=== PATIENT | female | born 1975 | race Caucasian/White ===

== ENCOUNTER 2016-06-21 02:29 | Emergency (ER) | payer OTHER ==
--- NOTE | ~2016-06-21 | CT2 ---
[facility] A Service of [facility] RADIOLOGY TEXT RESULTS PATIENT: KINJAL CAMACHO LOCATION: SED : 77 UNIT #: [id number] AGE: [address]: Carlyle Elena MD SEX: F ORDER DR: [id number] [place] [id number] E MR#: [id number] Acc #: [id number] NAME: KINJAL CAMACHO : 1975 SEX: F STUDY DATE/TIME: 06/21/2016 UNIT: SED ROOM: STUDY DESCRIPTION: CT Abd and Pelv W Cont Attending Physician: Carlyle Elena M.D. Ordering Physician: Carlyle Elena M.D. Primary Care Physician: Primary Care Physician No MEDICAL IMAGING REPORT This report is preliminary unless electronic signature is present. EXAM Abdomen and pelvis CT 06/21 at 03:40 INDICATIONS Left side abdominal pain with nausea that started yesterday. Pain rates 7 out of 10. TECHNIQUE Axial images were obtained through the abdomen and pelvis following oral and IV contrast administration. Multiplanar reformats were obtained. No comparison. The CT exam was performed with one or more of the following radiation dose reduction techniques: automatic exposure control, adjustment of mA and/or kV according to patient size, and iterative reconstruction. FINDINGS Abdomen: Minimal atelectasis in the lung bases dependently. Gallbladder surgically absent. There is a 4 mm stone in the lower pole of the left kidney. Solid organs otherwise are normal. No adenopathy or free fluid is seen. The GI tract is normal. Pelvis: Urinary bladder is normal. Uterus is surgically absent. The appendix is normal. The remainder of the GI tract is normal as well. IMPRESSION 1. No acute findings in the abdomen or pelvis. 2. A small nonobstructing stone left kidney. No ureteral stones on either side and no hydronephrosis. 3. Normal GI tract including the appendix. 4. Hysterectomy and cholecystectomy. [facility] A Service of [facility] RADIOLOGY TEXT RESULTS PATIENT: KINJAL CAMACHO LOCATION: SED : [birth year] UNIT #: [id number] AGE: [address]: Carlyle Elena MD SEX: F ORDER DR: Dictated by... Dimitrios Chowdhury Jr., M.D. THIS IS AN ELECTRONICALLY VERIFIED REPORT Dimitrios Chowdhury Jr., M.D. at 06/21/2016 9:25 PM SUNIL/stephanie TD: 06/21/2016 09:49 JOB #: [id number] MEDICAL IMAGING REPORT Page 1 of 1
[2016-06-21 02:02] LABS: URINE SOURCE CLEAN CATCH
[2016-06-21 02:04] LABS: URINE APPEARANCE CLEAR; URINE BILIRUBIN NEG (NEG); URINE BLOOD TRACE-INTACT (NEG); URINE COLOR YELLOW; URINE GLUCOSE NEG (NORM); URINE KETONE NEG (NEG); URINE LEUKOCYTE ESTERASE NEG (NEG); URINE NITRATE NEG (NEG); URINE PH 7.5 (5-8); URINE PROTEIN NEG (NEG); URINE SPECIFIC GRAVITY 1.015 (1.003-1.035); URINE UROBILINOGEN 0.2 MG/DL (NORM)
[2016-06-21 02:06] LABS: MICRO INDICATED? YES
[2016-06-21 02:11] LABS: CULTURE INDICATED? NO; URINE BACTERIA NEG (NEG); URINE SQUAMOUS EPITHELIAL CELL FEW /[HPF]; URINE WBC NEG /[HPF] (0-5)
[~2016-06-21 02:29] MED LIST: CERTAGEN PO; EC-NAPROSYN500 MG PO; FERROUS SULFATE PO; FLAGYL PO; FOLIC ACID PO; IBUPROFEN PO; KCL PO; LEXAPRO20 MG PO; MEDROL PO; PERCOCET5/325 PO; PRENATAL MULTIV1 TA1; SUBOXONE 2 MG-1 EACH TOP; VICODIN 5/500 T1 TAB PO
[2016-06-21 02:48] LABS: BASOPHIL# 0.1 X10e3 (0-0.3); BASOPHIL% 0.6 % (0-2.5); EOSINOPHIL# 0.3 X10e3 (0-0.7); EOSINOPHIL% 2.9 % (0.0-7.0); HEMATOCRIT 44.3 % (35.0-45.0); HEMOGLOBIN 15.2 gm/dL (12.0-16.0); LYMPHOCYTE# 2.7 X10e3 (1.0-3.5); LYMPHOCYTE% 27.4 % (17.0-45.0); MEAN CELL VOLUME 99.8 FL (83-96); MEAN CORPUSCULAR HEMOGLOBIN 34.2 PG (28-34); MEAN CORPUSCULAR HGB CONC 34.3 g/dL (30-36); MONOCYTE# 0.4 X10e3 (0-1.0); MONOCYTE% 4.3 % (3.0-12.0); NEUTROPHIL# 6.5 X10e3 (1.5-7.1); NEUTROPHIL% 64.8 % (40-75); PLATELET COUNT 254 X10e3 (140-420); RED BLOOD COUNT 4.44 X10e (3.90-5.30); RED CELL DISTRIBUTION WIDTH 12.1 % (11.0-15.5)
[2016-06-21 02:54] LABS: DIFF IND NO
[2016-06-21 03:00] LABS: ALBUMIN SERUM 4.5 g/dL (3.5-5.0); BILIRUBIN, DIRECT 0.1 mg/dL (0.0-0.2); BILIRUBIN,INDIRECT 0.2 mg/dL (0.0-0.9); BILIRUBIN,TOTAL 0.3 mg/dL (0.2-2.0); CALCIUM SERUM 9.7 mg/dL (8.4-10.2); CREATININE SERUM 0.6 mg/dL (0.6-1.4); GLOM FILT RATE Estimated 114.8 mL/min (>60); POTASSIUM 4.1 mmol/L (3.5-5.1); PROTEIN TOTAL SERUM 8.1 g/dL (6.0-8.3)
== END 2016-06-21 04:20 | disposition home or self-care (01) ==
LOC: SED 02:29
PROVIDERS: Emergency Medicine
DX: R10.30 Lower abdominal pain, unspecified (principal); R11.0 Nausea; F17.200 Nicotine dependence, unspecified, uncomplicated; Z88.5 Allergy status to narcotic agent
CPT/HCPCS: 36415; 74177; 80048; 80076; 81003; 83690; 85025; 96361; 96374; 96375; 99284; J2270; J2405; Q9967

== ENCOUNTER 2016-10-16 16:09 | Emergency (ER) | payer OTHER ==
[~2016-10-16] VITALS: Ht 170.2 cm; Wt 74.8 kg
--- NOTE | ~2016-10-16 | CR169 ---
[facility] A Service of [facility] RADIOLOGY TEXT RESULTS PATIENT: KINJAL CAMACHO LOCATION: SED : [birth year] UNIT #: [id number] AGE: [address]: HUBER PENA SEX: F ORDER DR: [id number] [place] [id number] E MR#: [id number] Acc #: [id number] NAME: KINJAL CAMACHO : 1975 SEX: F STUDY DATE/TIME: 10/16/2016 17:44 UNIT: SED ROOM: STUDY DESCRIPTION: CR Knee 2 Views Lt Attending Physician: Huber Pena Aprn Ordering Physician: Huber Pena Aprn Primary Care Physician: No Primary Care Physician MEDICAL IMAGING REPORT This report is preliminary unless electronic signature is present. EXAM Left knee, 2 views, 10/16/2016. INDICATION 40-year-old female with knee pain since Sunday. No known injury. History of osteoarthritis. TECHNIQUE Two views. COMPARISON No comparisons. FINDINGS AP and lateral projection of the knee shows smooth articular anatomy without indication of fracture or dislocation at the major weight-bearing surface of the knee. There is no indication of radiopaque foreign body about the knee surface or joint effusion. IMPRESSION Normal knee. Dictated by... Tono Witt M.D. THIS IS AN ELECTRONICALLY VERIFIED REPORT Tono Witt M.D. at 10/17/2016 2:19 PM EVETTE/ermias TD: 10/17/2016 09:13 [facility] A Service [facility] RADIOLOGY TEXT RESULTS PATIENT: KINJAL CAMACHO LOCATION: SED : [birth year] UNIT #: [id number] AGE: [address]: HUBER PENA SEX: F ORDER DR: PEDRO #: [id number] MEDICAL IMAGING REPORT Page 1 of 1
--- NOTE | ~2016-10-16 | CR170 ---
[facility] A Service of [facility] RADIOLOGY TEXT RESULTS PATIENT: KINJAL CAMACHO LOCATION: SED : [birth year] UNIT #: [id number] AGE: [address]: HUBER PENA SEX: F ORDER DR: [id number] [place] [id number] E MR#: [id number] Acc #: [id number] NAME: KINJAL CAMACHO : 1975 SEX: F STUDY DATE/TIME: 10/16/2016 17:44 UNIT: SED ROOM: STUDY DESCRIPTION: CR Knee 2 Views Rt Attending Physician: Huber Pena Aprn Ordering Physician: Huber Pena Aprn Primary Care Physician: No Primary Care Physician MEDICAL IMAGING REPORT This report is preliminary unless electronic signature is present. EXAM Two view right knee, 10/16/2016. INDICATION Pain since Sunday in the right knee. No known injury. History of osteoarthritis. TECHNIQUE Two views. COMPARISON No comparisons. FINDINGS AP and lateral projection of the right knee shows smooth articular anatomy without indication of fracture or dislocation at the major weight-bearing surface of the knee. There is no indication of radiopaque foreign body about the knee surface or joint effusion. IMPRESSION Normal right knee. Dictated by... Tono Witt M.D. THIS IS AN ELECTRONICALLY VERIFIED REPORT Tono Witt M.D. at 10/17/2016 2:19 PM EVETTE/neno TD: 10/17/2016 09:08 JOB #: [id number] [facility] A Service [facility] RADIOLOGY TEXT RESULTS PATIENT: KINJAL CAMACHO LOCATION: SED : [birth year] UNIT #: [id number] AGE: [address]: HUBER PENA SEX: F ORDER DR: MEDICAL IMAGING REPORT Page 1 of 1
[2016-10-16] MEDS ORDERED: LISINOPRIL (16:35)
[2016-10-16] MEDS ORDERED: GABAPENTIN (16:36)
== END 2016-10-16 18:29 | disposition home or self-care (01) ==
LOC: SED 16:09
DX: M76.52 Patellar tendinitis, left knee (principal); M76.51 Patellar tendinitis, right knee; I10 Essential (primary) hypertension; F17.210 Nicotine dependence, cigarettes, uncomplicated; Z90.710 Acquired absence of both cervix and uterus; Z88.6 Allergy status to analgesic agent; Z79.899 Other long term (current) drug therapy
CPT/HCPCS: 73560; 99283